=== PATIENT | male | born 1995 | race African-American/Black ===

== ENCOUNTER 2020-04-15 23:50 | Emergency (ER) | payer OTHER ==
[~2020-04-15] VITALS: Ht 172.7 cm; Wt 70.3 kg
--- NOTE | 2020-04-15 23:55 | NUR ---
Patient ambulated with steady gait. A/Ox4. Speech is somewhat slurred but speaks in complete sentences. No acute neuro deficits noted. Patient BIB [facility] from detox facility to be medically cleared prior to admission to rehab center. 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 Respiratory even and unlabored, no cough no sob. Denies any cardiovascular distress, no cp, palpitations or chest discomfort. Denies any n/v/d, abd pain, or any gu distress. Patient in bed at lowest position, sr upx2, call light within reach. Fall and safety precautions implemented per protocol.
[2020-04-16] MEDS ORDERED: QUET400T PO (00:06)
[2020-04-16] MEDS ORDERED: BUPR2TAB3 SL (00:06)
[2020-04-16] MEDS ORDERED: CLON1TAB PO (00:06)
[2020-04-16] MEDS ORDERED: GABA600T12 PO (00:06)
--- NOTE | 2020-04-16 00:34 | NUR ---
MD assessed patient - orders recieved. Pending lab results.
[2020-04-16 00:38] LABS: BASOPHILS # (AUTO) 0.1 K/uL (0.0-8.0); BASOPHILS % (AUTO) 1.1 % (0.0-2.0); EOSINOPHILS # (AUTO) 0.6 K/uL (0.0-0.7); EOSINOPHILS % (AUTO) 7.3 % (0.0-7.0); HEMATOCRIT 44.8 % (36.7-47.1); LYMPHOCYTES # (AUTO) 2.7 K/uL (20.0-40.0); LYMPHOCYTES % (AUTO) 30.7 % (20.5-51.5); MEAN CORPUSCULAR HEMOGLOBIN 29.9 uug (23.8-33.4); MEAN CORPUSCULAR HGB CONC 34 g/dL (32.5-36.3); MONOCYTES # (AUTO) 0.6 K/uL (2.0-10.0); MONOCYTES % (AUTO) 6.5 % (0.0-11.0); NEUTROPHILS # (AUTO) 4.8 K/uL (1.8-8.9); NEUTROPHILS % (AUTO) 54.4 % (38.5-71.5); PLATELET COUNT (AUTO) 371 K/uL (152-348); RED BLOOD CELL COUNT(AUTO) 5.03 MIL/uL (4.06-5.63); WHITE BLOOD COUNT (AUTO) 8.9 K/uL (3.6-10.2)
[2020-04-16 00:48] LABS: BILIRUBIN,TOTAL 0.2 mg/dL (0.2-1.0); CREATININE 1.1 mg/dL (0.6-1.3); POTASSIUM 3.8 mmol/L (3.5-5.1); TOTAL PROTEIN, SERUM 7.4 g/dL (6.4-8.2)
--- NOTE | 2020-04-16 01:30 | NUR ---
Patient requesting to wait in waiting room with [facility].
--- NOTE | 2020-04-16 01:31 | NUR ---
Patient waiting for COVID Antigen results to be discharged.
--- NOTE | 2020-04-16 01:55 | NUR ---
Patient discharged to home in stable condition. Stable condition. [facility] accompanied him. Written and verbal after care instructions given. Patient verbalizes understanding of instructions. Stressed follow up or return to ER for worsening s/s. All belongings given.
[2020-04-16 01:56] VITALS: BP 112/75
== END 2020-04-16 01:56 | disposition home or self-care (01) ==
LOC: ER 23:59
DX: Z02.2 Encounter for examination for admission to residential institution (principal); F11.10 Opioid abuse, uncomplicated; F41.9 Anxiety disorder, unspecified; Z20.822 Contact with and (suspected) exposure to COVID-19
CPT/HCPCS: 36415; 85025; A4663